=== PATIENT | female | born 1960 | race Caucasian/White ===

== ENCOUNTER 2018-06-30 19:11 | Inpatient (IN) | payer OTHER ==
[2018-06-30] MEDS: ONDANSETRON 4 MG INJ IV (22:25)
[2018-06-30] MEDS: ASPIRIN 81 MG TAB PO (22:25)
[2018-06-30] MEDS: morphine 4 MG/ML VIAL IV (22:26)
[2018-06-30] MEDS: FUROSEMIDE 40 MG INJ IV (22:26)
[2018-06-30 22:40] LABS: ADD MAN DIFF? NO
[2018-06-30 22:53] LABS: WHITE BLOOD COUNT 9.9 10^3/ul (4.8-10.8)
[2018-06-30 22:53] LABS: BASOPHIL # 0.1 10^3/ul (0.0-0.1); BASOPHILS % 0.5 % (0.0-2.0); EOSINOPHILS # 0.1 10^3/ul (0.0-0.5); EOSINOPHILS % 1.2 % (0.0-7.0); HEMATOCRIT 41.2 % (37.0-47.0); HEMOGLOBIN 13.8 g/dl (12.0-16.0); LYMPHOCYTES # 3.3 10^3/ul (0.8-2.9); LYMPHOCYTES % 33.8 % (15.0-51.0); MEAN CORPUSCULAR HEMOGLOBIN 27.1 pg (29.0-33.0); MEAN CORPUSCULAR HGB CONC 33.5 g/dl (32.0-37.0); MEAN CORPUSCULAR VOLUME 80.8 fl (82.0-101.0); MEAN PLATELET VOLUME 9.9 fl (7.4-10.4); MONOCYTE # 0.5 10^3/ul (0.3-0.9); MONOCYTES % 5.1 % (0.0-11.0); NEUTROPHIL # 5.8 10^3/ul (1.6-7.5); NEUTROPHILS % 59.1 % (39.0-77.0); PLATELET COUNT 271 10^3/UL (140-415); RED CELL DISTRIBUTION WIDTH 12.5 % (11.5-14.5)
[2018-06-30 23:11] LABS: ANION GAP 13 (5-13); BLOOD UREA NITROGEN 20 mg/dl (7-20); CALCIUM 9.8 mg/dl (8.4-10.2); CARBON DIOXIDE 28 mmol/L (21-31); CHLORIDE 95 mmol/L (97-110); Estimated GFR > 60 mL/min (>60); GLUCOSE 212 mg/dl (70-220); POTASSIUM 4.4 mmol/L (3.5-5.1); SODIUM 136 mmol/L (135-144)
[2018-06-30 23:23] LABS: B-TYPE NATRIURETIC PEPTIDE 45 PG/ML (0-125); TROPONIN-I < 0.012 ng/ml (0.000-0.120)
[2018-07-01] MEDS ORDERED: BISACODYL (EC) 5 MG TAB PO
[2018-07-01] MEDS ORDERED: ONDANSETRON 4 MG INJ IV
[2018-07-01] MEDS ORDERED: ACETAMINOPHEN 325 MG TAB PO ×2
[2018-07-01] MEDS ORDERED: NON-FORMULARY/PATIENT OWN MED (Insulin Lispro (Humalog Kwikpen U-100) 10 UNIT) SQ
[2018-07-01] MEDS ORDERED: NACL 0.9% 3 ML SYG IV
[2018-07-01] MEDS ORDERED: DOCUSATE SODIUM 100 MG CAP PO
[2018-07-01] MEDS ORDERED: CYCLOBENZAPRINE 10 MG TAB PO (02:30)
[2018-07-01] MEDS: KETOROLAC 30 MG INJ IV (03:17)
[2018-07-01 04:57] LABS: ADD MAN DIFF? NO
[2018-07-01 05:01] LABS: WHITE BLOOD COUNT 9.3 10^3/ul (4.8-10.8)
[2018-07-01 05:01] LABS: BASOPHIL # 0.1 10^3/ul (0.0-0.1); BASOPHILS % 0.6 % (0.0-2.0); EOSINOPHILS # 0.1 10^3/ul (0.0-0.5); EOSINOPHILS % 1.4 % (0.0-7.0); HEMATOCRIT 42.1 % (37.0-47.0); LYMPHOCYTES # 3.4 10^3/ul (0.8-2.9); LYMPHOCYTES % 36.2 % (15.0-51.0); MEAN CORPUSCULAR HEMOGLOBIN 27.2 pg (29.0-33.0); MEAN CORPUSCULAR HGB CONC 33.3 g/dl (32.0-37.0); MEAN CORPUSCULAR VOLUME 81.7 fl (82.0-101.0); MEAN PLATELET VOLUME 9.9 fl (7.4-10.4); MONOCYTE # 0.5 10^3/ul (0.3-0.9); MONOCYTES % 5.4 % (0.0-11.0); NEUTROPHIL # 5.2 10^3/ul (1.6-7.5); NEUTROPHILS % 56.2 % (39.0-77.0); PLATELET COUNT 252 10^3/UL (140-415); RED BLOOD COUNT 5.15 10^6/ul (4.20-5.40); RED CELL DISTRIBUTION WIDTH 12.4 % (11.5-14.5)
[2018-07-01 05:17] LABS: HEMOGLOBIN A1C 10.7 % (0-5.9)
[2018-07-01 05:29] LABS: ALANINE AMINOTRANSFERASE 30 IU/L (13-69); ALBUMIN 4.2 g/dl (3.3-4.9); ALBUMIN/GLOBULIN RATIO 1.31; ALKALINE PHOSPHATASE 111 IU/L (42-121); ANION GAP 11 (5-13); ASPARTATE AMINO TRANSFERASE 29 IU/L (15-46); BILIRUBIN,INDIRECT 0.4 mg/dl (0-1.1); BILIRUBIN,TOTAL 0.4 mg/dl (0.2-1.3); BLOOD UREA NITROGEN 21 mg/dl (7-20); CALCIUM 9.8 mg/dl (8.4-10.2); CARBON DIOXIDE 34 mmol/L (21-31); CHLORIDE 94 mmol/L (97-110); CREATININE 0.73 mg/dl (0.44-1.00); Estimated GFR > 60 mL/min (>60); GLUCOSE 157 mg/dl (70-220); HDL CHOLESTEROL 38 mg/dl (37-92); MAGNESIUM 1.8 mg/dl (1.7-2.5); POTASSIUM 4.6 mmol/L (3.5-5.1); SODIUM 139 mmol/L (135-144); TOTAL PROTEIN 7.4 g/dl (6.1-8.1)
[2018-07-01 05:31] LABS: CREATINE KINASE 23 IU/L (23-200)
[2018-07-01 05:40] LABS: CK-MB < 0.22 ng/ml (0.0-2.4); TROPONIN-I < 0.012 ng/ml (0.000-0.120)
[2018-07-01 05:41] LABS: CHOL/HDL RATIO 11.1 RATIO; CHOLESTEROL 424 mg/dl (100-200); LDL CHOLESTEROL,CALCULATED 257 mg/dl; TRIGLYCERIDES 646 mg/dl (0-149)
[2018-07-01] MEDS ORDERED: DEXTROSE 50% 50 ML SYRINGE IV ×2 (07:30)
[2018-07-01] MEDS ORDERED: GLUCOSE GEL 15 GRAM TUBE BUCCAL (07:30)
[2018-07-01] MEDS ORDERED: GLUCOSE GEL 15 GRAM TUBE PO ×2 (07:30)
[2018-07-01] MEDS ORDERED: GLUCAGON 1 MG INJ IM (07:30)
[2018-07-01] MEDS: PANTOPRAZOLE (EC) 40 MG TAB PO (08:07)
[2018-07-01] MEDS: LISINOPRIL 20 MG TAB PO ×2 (08:07→20:48)
[2018-07-01] MEDS: ASPIRIN 81 MG TAB PO (08:08)
[2018-07-01] MEDS: OLANZAPINE 5 MG TAB PO (08:08)
[2018-07-01] MEDS: FUROSEMIDE 40 MG TAB PO ×2 (08:08→17:22)
[2018-07-01] MEDS: SERTRALINE 50 MG TAB PO (08:09)
[2018-07-01] MEDS: THIAMINE 100 MG TAB PO (08:09)
[2018-07-01] MEDS ORDERED: NON-FORMULARY/PATIENT OWN MED (Omeprazole* 20 MG) PO (09:00)
[2018-07-01] MEDS ORDERED: ASPIRIN 81 MG TAB PO (09:00)
[2018-07-01 10:27] LABS: CREATINE KINASE 25 IU/L (23-200)
[2018-07-01 10:37] LABS: CK INDEX 0.9; CK-MB < 0.22 ng/ml (0.0-2.4); TROPONIN-I < 0.012 ng/ml (0.000-0.120)
[2018-07-01] MEDS: INSULIN ASPART [NOVOLOG] 3 ML PEN SC ×5 (12:11→21:13)
[2018-07-01] MEDS: DIGOXIN 0.125 MG TAB PO (12:19)
[2018-07-01] MEDS ORDERED: INSULIN GLARGINE [LANTus] (100 UNITS/ML) SYG SC (20:00)
[2018-07-01] MEDS: ATORVASTATIN 80 MG TAB PO (20:46)
[2018-07-01] MEDS ORDERED: ATORVASTATIN 40 MG TAB PO (21:00)
[2018-07-01] MEDS: INSULIN GLARGINE [LANTus] (100 UNITS/ML) SYG SC (21:13)
[2018-07-02] MEDS: PANTOPRAZOLE (EC) 40 MG TAB PO (05:29)
[2018-07-02] MEDS: FUROSEMIDE 40 MG TAB PO (05:29)
[2018-07-02 05:50] LABS: ADD MAN DIFF? NO
[2018-07-02 05:51] LABS: WHITE BLOOD COUNT 7.6 10^3/ul (4.8-10.8)
[2018-07-02 05:51] LABS: BASOPHIL # 0.1 10^3/ul (0.0-0.1); BASOPHILS % 0.7 % (0.0-2.0); EOSINOPHILS # 0.1 10^3/ul (0.0-0.5); EOSINOPHILS % 1.2 % (0.0-7.0); HEMATOCRIT 42.8 % (37.0-47.0); LYMPHOCYTES # 2.2 10^3/ul (0.8-2.9); LYMPHOCYTES % 29.1 % (15.0-51.0); MEAN CORPUSCULAR HGB CONC 32.7 g/dl (32.0-37.0); MEAN CORPUSCULAR VOLUME 82.5 fl (82.0-101.0); MONOCYTE # 0.4 10^3/ul (0.3-0.9); MONOCYTES % 5.3 % (0.0-11.0); NEUTROPHIL # 4.8 10^3/ul (1.6-7.5); NEUTROPHILS % 63.4 % (39.0-77.0); PLATELET COUNT 251 10^3/UL (140-415); RED BLOOD COUNT 5.19 10^6/ul (4.20-5.40); RED CELL DISTRIBUTION WIDTH 12.7 % (11.5-14.5)
[2018-07-02 06:30] LABS: PHOSPHORUS 4.6 mg/dl (2.5-4.9)
[2018-07-02 06:40] LABS: ANION GAP 10 (5-13); BLOOD UREA NITROGEN 26 mg/dl (7-20); CALCIUM 9.9 mg/dl (8.4-10.2); CARBON DIOXIDE 27 mmol/L (21-31); CHLORIDE 99 mmol/L (97-110); CREATININE 0.61 mg/dl (0.44-1.00); Estimated GFR > 60 mL/min (>60); GLUCOSE 220 mg/dl (70-220); SODIUM 136 mmol/L (135-144)
[2018-07-02 06:41] LABS: POTASSIUM 4.5 mmol/L (3.5-5.1); TROPONIN-I < 0.012 ng/ml (0.000-0.120)
[2018-07-02] MEDS ORDERED: SUCCINYLCHOLINE CHLORIDE 100 MG/5 ML SYG IV (07:00)
[2018-07-02] MEDS ORDERED: ETOMIDATE 20 MG INJ (07:00)
[2018-07-02] MEDS ORDERED: LIDOCAINE 1% (MDV) 20 ML INJ (07:39)
[2018-07-02] MEDS ORDERED: IODIXANOL LOCM 100 ML BTL ×5 (07:39→12:11)
[2018-07-02] MEDS ORDERED: NITROGLYCERIN (IC) 100 MCG/ML INJ ×2 (07:39→10:01)
[2018-07-02] MEDS ORDERED: HEPARIN 1000 UNITS/ML 10 ML INJ (07:39)
[2018-07-02] MEDS ORDERED: VERAPAMIL 5 MG INJ ×2 (07:39→10:01)
[2018-07-02] MEDS ORDERED: FENTAnyl 50 MCG/ML VIAL (07:47)
[2018-07-02] MEDS ORDERED: MIDAZOLAM 1 MG/ML 2 ML INJ (07:47)
[2018-07-02] MEDS ORDERED: BIVALIRUDIN 250MG /NS 50 ML 50 ML IVPB ×2 (08:27→09:58)
[2018-07-02] MEDS ORDERED: TICAGRELOR 90 MG TABLET (08:27)
[2018-07-02] MEDS ORDERED: IOHEXOL 350MG/ML 50 ML BTL ×2 (08:27→12:11)
[2018-07-02] MEDS ORDERED: ASPIRIN 325 MG TAB (08:54)
[2018-07-02] MEDS: ENOXAPARIN 40 MG/0.4 ML SYG SC (09:00)
[2018-07-02] MEDS: OLANZAPINE 5 MG TAB PO (09:00)
[2018-07-02] MEDS ORDERED: EPTIFIBATIDE 200 MG INJ IV (10:00)
[2018-07-02] MEDS ORDERED: EPTIFIBATIDE 20 MG INJ (10:00)
[2018-07-02] MEDS ORDERED: PROPOFOL 100 ML (12:49)
[2018-07-02] MEDS ORDERED: MAGNESIUM SULFATE 1 GM/D5W 100 ML ×2 (12:51→12:53)
[2018-07-02 13:18] LABS: ADD MAN DIFF? NO
[2018-07-02 13:24] LABS: BASOPHIL # 0.1 10^3/ul (0.0-0.1); BASOPHILS % 0.5 % (0.0-2.0); EOSINOPHILS % 0.3 % (0.0-7.0); HEMATOCRIT 42.8 % (37.0-47.0); HEMOGLOBIN 13.6 g/dl (12.0-16.0); LYMPHOCYTES % 15.4 % (15.0-51.0); MEAN CORPUSCULAR HEMOGLOBIN 26.9 pg (29.0-33.0); MEAN CORPUSCULAR HGB CONC 31.8 g/dl (32.0-37.0); MEAN CORPUSCULAR VOLUME 84.8 fl (82.0-101.0); MEAN PLATELET VOLUME 10.4 fl (7.4-10.4); MONOCYTE # 0.4 10^3/ul (0.3-0.9); MONOCYTES % 3.4 % (0.0-11.0); NEUTROPHIL # 10.3 10^3/ul (1.6-7.5); PLATELET COUNT 316 10^3/UL (140-415); RED BLOOD COUNT 5.05 10^6/ul (4.20-5.40); RED CELL DISTRIBUTION WIDTH 12.8 % (11.5-14.5)
[2018-07-02 13:24] LABS: WHITE BLOOD COUNT 12.8 10^3/ul (4.8-10.8)
[2018-07-02 13:39] LABS: ALANINE AMINOTRANSFERASE 110 IU/L (13-69); ALBUMIN 4.2 g/dl (3.3-4.9); ALBUMIN/GLOBULIN RATIO 1.23; ALKALINE PHOSPHATASE 135 IU/L (42-121); ANION GAP 19 (5-13); ASPARTATE AMINO TRANSFERASE 179 IU/L (15-46); BLOOD UREA NITROGEN 23 mg/dl (7-20); CALCIUM 9.1 mg/dl (8.4-10.2); CARBON DIOXIDE 25 mmol/L (21-31); CHLORIDE 94 mmol/L (97-110); CREATININE 0.68 mg/dl (0.44-1.00); Estimated GFR > 60 mL/min (>60); GLUCOSE 384 mg/dl (70-220); SODIUM 138 mmol/L (135-144); TOTAL PROTEIN 7.6 g/dl (6.1-8.1)
[2018-07-02] MEDS: PROPOFOL 100 ML IV ×3 (13:45→21:54)
[2018-07-02] MEDS: AMIODARONE 900 MG in DEXTROSE 5% 482 ML IV (13:47)
[2018-07-02] MEDS: EPTIFIBATIDE 100 ML IV ×2 (14:13→21:53)
[2018-07-02] MEDS: INSULIN ASPART [NOVOLOG] 3 ML PEN SC ×3 (14:14→22:03)
[2018-07-02 14:34] LABS: AADO2 Arterial 136.9 mmHg (7.0-24.0); Arterial Base Excess -0.9 mmol/L (-3.0-3); Arterial Blood Gas Oxygen Sat 99.7 mmHG (95.0-98.0); Arterial COHb 0.3 % (0.0-3.0); Arterial Fraction of Oxyhgb 99.1 % (93.0-99.0); Arterial MetHb 0.3 % (0.0-1.5); Arterial pCO2 41.1 mmhg (35-45); MODE VENT - AC; Site Right Brachial
[2018-07-02] MEDS: SOD CHLORIDE 0.9% 1,000 ML IV (14:48)
[2018-07-02] MEDS: MAGNESIUM SULFATE 1 GM/D5W 100 ML IVPB ×2 (14:48→15:00)
[2018-07-02] MEDS: THIAMINE 100 MG TAB PO (14:57)
[2018-07-02] MEDS: LISINOPRIL 20 MG TAB PO (14:57)
[2018-07-02] MEDS: SERTRALINE 50 MG TAB PO (14:57)
[2018-07-02] MEDS: ASPIRIN 81 MG TAB PO (14:58)
[2018-07-02] MEDS: INSULIN GLARGINE [LANTus] (100 UNITS/ML) SYG SC (20:21)
[2018-07-02] MEDS: ATORVASTATIN 80 MG TAB PO (20:27)
[2018-07-02] MEDS: TICAGRELOR 90 MG TABLET PO (20:29)
[2018-07-02 21:06] LABS: ADD MAN DIFF? NO
[2018-07-02 21:09] LABS: BASOPHIL # 0.1 10^3/ul (0.0-0.1); BASOPHILS % 0.3 % (0.0-2.0); EOSINOPHILS % 0.1 % (0.0-7.0); HEMATOCRIT 37.4 % (37.0-47.0); HEMOGLOBIN 12.7 g/dl (12.0-16.0); LYMPHOCYTES # 1.1 10^3/ul (0.8-2.9); LYMPHOCYTES % 7.7 % (15.0-51.0); MEAN CORPUSCULAR HEMOGLOBIN 27.5 pg (29.0-33.0); MONOCYTE # 0.9 10^3/ul (0.3-0.9); MONOCYTES % 6.4 % (0.0-11.0); NEUTROPHIL # 12.3 10^3/ul (1.6-7.5); NEUTROPHILS % 85.2 % (39.0-77.0); PLATELET COUNT 291 10^3/UL (140-415); RED BLOOD COUNT 4.62 10^6/ul (4.20-5.40); RED CELL DISTRIBUTION WIDTH 13.1 % (11.5-14.5)
[2018-07-02 21:09] LABS: WHITE BLOOD COUNT 14.4 10^3/ul (4.8-10.8)
[2018-07-03] MEDS: INSULIN ASPART [NOVOLOG] 3 ML PEN SC ×6 (01:44→21:38)
[2018-07-03 04:28] LABS: ADD MAN DIFF? NO
[2018-07-03 04:29] LABS: BASOPHILS % 0.4 % (0.0-2.0); EOSINOPHILS % 0.4 % (0.0-7.0); HEMATOCRIT 35.6 % (37.0-47.0); HEMOGLOBIN 11.8 g/dl (12.0-16.0); LYMPHOCYTES # 1.2 10^3/ul (0.8-2.9); LYMPHOCYTES % 10.6 % (15.0-51.0); MEAN CORPUSCULAR HEMOGLOBIN 27.2 pg (29.0-33.0); MEAN CORPUSCULAR HGB CONC 33.1 g/dl (32.0-37.0); MEAN PLATELET VOLUME 10.4 fl (7.4-10.4); MONOCYTE # 0.6 10^3/ul (0.3-0.9); MONOCYTES % 5.7 % (0.0-11.0); NEUTROPHILS % 82.5 % (39.0-77.0); PLATELET COUNT 273 10^3/UL (140-415); RED BLOOD COUNT 4.34 10^6/ul (4.20-5.40)
[2018-07-03 04:29] LABS: WHITE BLOOD COUNT 10.9 10^3/ul (4.8-10.8)
[2018-07-03] MEDS: PROPOFOL 100 ML IV (04:37)
[2018-07-03 04:47] LABS: ALANINE AMINOTRANSFERASE 81 IU/L (13-69); ALBUMIN 3.6 g/dl (3.3-4.9); ALBUMIN/GLOBULIN RATIO 1.12; ALKALINE PHOSPHATASE 104 IU/L (42-121); ANION GAP 10 (5-13); ASPARTATE AMINO TRANSFERASE 100 IU/L (15-46); BILIRUBIN,INDIRECT 0.9 mg/dl (0-1.1); BILIRUBIN,TOTAL 0.9 mg/dl (0.2-1.3); BLOOD UREA NITROGEN 19 mg/dl (7-20); CALCIUM 8.9 mg/dl (8.4-10.2); CARBON DIOXIDE 28 mmol/L (21-31); CHLORIDE 99 mmol/L (97-110); Estimated GFR > 60 mL/min (>60); GLUCOSE 206 mg/dl (70-220); POTASSIUM 3.7 mmol/L (3.5-5.1); SODIUM 137 mmol/L (135-144); TOTAL PROTEIN 6.8 g/dl (6.1-8.1)
[2018-07-03 04:48] LABS: PHOSPHORUS 3.2 mg/dl (2.5-4.9)
[2018-07-03] MEDS: PANTOPRAZOLE 40 MG INJ IV ×2 (05:36→18:12)
[2018-07-03] MEDS: FUROSEMIDE 40 MG TAB PO (05:37)
[2018-07-03 08:43] LABS: AADO2 Arterial 98.2 mmHg (7.0-24.0); Allen Test ACCEPTAB; Arterial Base Excess 4.4 mmol/L (-3.0-3); Arterial Blood Gas Oxygen Sat 98.8 mmHG (95.0-98.0); Arterial COHb 0.1 % (0.0-3.0); Arterial Fraction of Oxyhgb 98.4 % (93.0-99.0); Arterial HCO3 28.5 mmol/L (22.0-26.0); Arterial MetHb 0.3 % (0.0-1.5); Arterial pCO2 40.4 mmhg (35-45); MODE VENT - AC; Site Right Radial
[2018-07-03] MEDS: ASPIRIN 81 MG TAB PO (09:18)
[2018-07-03] MEDS: OLANZAPINE 5 MG TAB PO (09:18)
[2018-07-03] MEDS: THIAMINE 100 MG TAB PO (09:18)
[2018-07-03] MEDS: SERTRALINE 50 MG TAB PO (09:18)
[2018-07-03] MEDS: TICAGRELOR 90 MG TABLET PO ×2 (09:20→21:33)
[2018-07-03] MEDS: ENOXAPARIN 40 MG/0.4 ML SYG SC (09:21)
[2018-07-03] MEDS: ONDANSETRON 4 MG INJ IV (09:40)
[2018-07-03] MEDS: INSULIN GLARGINE [LANTus] (100 UNITS/ML) SYG SC (20:05)
[2018-07-03] MEDS: ATORVASTATIN 80 MG TAB PO (21:31)
[2018-07-04] MEDS: INSULIN ASPART [NOVOLOG] 3 ML PEN SC ×6 (02:21→17:30)
[2018-07-04 05:02] LABS: ADD MAN DIFF? NO
[2018-07-04 05:04] LABS: BASOPHILS % 0.3 % (0.0-2.0); EOSINOPHILS # 0.1 10^3/ul (0.0-0.5); EOSINOPHILS % 1.1 % (0.0-7.0); HEMATOCRIT 35.5 % (37.0-47.0); HEMOGLOBIN 11.6 g/dl (12.0-16.0); LYMPHOCYTES # 1.4 10^3/ul (0.8-2.9); LYMPHOCYTES % 12.8 % (15.0-51.0); MEAN CORPUSCULAR HEMOGLOBIN 27.2 pg (29.0-33.0); MEAN CORPUSCULAR HGB CONC 32.7 g/dl (32.0-37.0); MEAN CORPUSCULAR VOLUME 83.3 fl (82.0-101.0); MEAN PLATELET VOLUME 10.5 fl (7.4-10.4); MONOCYTE # 0.7 10^3/ul (0.3-0.9); MONOCYTES % 6.5 % (0.0-11.0); NEUTROPHIL # 8.3 10^3/ul (1.6-7.5); NEUTROPHILS % 78.8 % (39.0-77.0); PLATELET COUNT 230 10^3/UL (140-415); RED BLOOD COUNT 4.26 10^6/ul (4.20-5.40); RED CELL DISTRIBUTION WIDTH 12.8 % (11.5-14.5)
[2018-07-04 05:04] LABS: WHITE BLOOD COUNT 10.5 10^3/ul (4.8-10.8)
[2018-07-04 05:36] LABS: PHOSPHORUS 3.2 mg/dl (2.5-4.9)
[2018-07-04 05:36] LABS: MAGNESIUM 1.9 mg/dl (1.7-2.5)
[2018-07-04 05:39] LABS: ALANINE AMINOTRANSFERASE 58 IU/L (13-69); ALBUMIN 3.8 g/dl (3.3-4.9); ALBUMIN/GLOBULIN RATIO 1.22; ALKALINE PHOSPHATASE 110 IU/L (42-121); ANION GAP 8 (5-13); ASPARTATE AMINO TRANSFERASE 78 IU/L (15-46); BILIRUBIN,INDIRECT 1.4 mg/dl (0-1.1); BILIRUBIN,TOTAL 1.4 mg/dl (0.2-1.3); BLOOD UREA NITROGEN 21 mg/dl (7-20); CALCIUM 9.2 mg/dl (8.4-10.2); CARBON DIOXIDE 29 mmol/L (21-31); CHLORIDE 102 mmol/L (97-110); CREATININE 0.46 mg/dl (0.44-1.00); Estimated GFR > 60 mL/min (>60); GLUCOSE 187 mg/dl (70-220); POTASSIUM 3.7 mmol/L (3.5-5.1); SODIUM 139 mmol/L (135-144); TOTAL PROTEIN 6.9 g/dl (6.1-8.1)
[2018-07-04] MEDS: PANTOPRAZOLE 40 MG INJ IV ×2 (06:19→17:24)
[2018-07-04] MEDS: SOD CHLORIDE 0.9% 1,000 ML IV (08:09)
[2018-07-04] MEDS: ENOXAPARIN 40 MG/0.4 ML SYG SC (09:00)
[2018-07-04] MEDS: OLANZAPINE 5 MG TAB PO (09:16)
[2018-07-04] MEDS: THIAMINE 100 MG TAB PO (09:16)
[2018-07-04] MEDS: SERTRALINE 50 MG TAB PO (09:16)
[2018-07-04] MEDS: ASPIRIN 81 MG TAB PO (09:16)
[2018-07-04] MEDS: TICAGRELOR 90 MG TABLET PO ×2 (09:18→20:27)
[2018-07-04] MEDS: PROPOFOL 100 ML IV (11:42)
[2018-07-04] MEDS: ATORVASTATIN 80 MG TAB PO (20:25)
[2018-07-04] MEDS: INSULIN GLARGINE [LANTus] (100 UNITS/ML) SYG SC (20:26)
[2018-07-05 05:21] LABS: ADD MAN DIFF? NO
[2018-07-05 05:26] LABS: WHITE BLOOD COUNT 10.3 10^3/ul (4.8-10.8)
[2018-07-05 05:26] LABS: BASOPHILS % 0.2 % (0.0-2.0); EOSINOPHILS # 0.2 10^3/ul (0.0-0.5); EOSINOPHILS % 2.1 % (0.0-7.0); HEMATOCRIT 30.5 % (37.0-47.0); HEMOGLOBIN 10.1 g/dl (12.0-16.0); LYMPHOCYTES # 1.5 10^3/ul (0.8-2.9); LYMPHOCYTES % 14.7 % (15.0-51.0); MEAN CORPUSCULAR HEMOGLOBIN 27.2 pg (29.0-33.0); MEAN CORPUSCULAR HGB CONC 33.1 g/dl (32.0-37.0); MEAN CORPUSCULAR VOLUME 82.2 fl (82.0-101.0); MEAN PLATELET VOLUME 10.5 fl (7.4-10.4); MONOCYTE # 0.6 10^3/ul (0.3-0.9); MONOCYTES % 5.8 % (0.0-11.0); NEUTROPHIL # 7.9 10^3/ul (1.6-7.5); NEUTROPHILS % 76.7 % (39.0-77.0); PLATELET COUNT 219 10^3/UL (140-415); RED BLOOD COUNT 3.71 10^6/ul (4.20-5.40); RED CELL DISTRIBUTION WIDTH 13.1 % (11.5-14.5)
[2018-07-05 05:47] LABS: ANION GAP 9 (5-13); BLOOD UREA NITROGEN 19 mg/dl (7-20); CALCIUM 8.9 mg/dl (8.4-10.2); CARBON DIOXIDE 27 mmol/L (21-31); CHLORIDE 102 mmol/L (97-110); CREATININE 0.49 mg/dl (0.44-1.00); Estimated GFR > 60 mL/min (>60); GLUCOSE 215 mg/dl (70-220); POTASSIUM 3.6 mmol/L (3.5-5.1); SODIUM 138 mmol/L (135-144)
[2018-07-05 05:56] LABS: PHOSPHORUS 2.7 mg/dl (2.5-4.9)
[2018-07-05 05:56] LABS: MAGNESIUM 1.6 mg/dl (1.7-2.5)
[2018-07-05] MEDS: PANTOPRAZOLE 40 MG INJ IV (06:08)
[2018-07-05] MEDS: SERTRALINE 50 MG TAB PO (08:29)
[2018-07-05] MEDS: OLANZAPINE 5 MG TAB PO (08:29)
[2018-07-05] MEDS: ASPIRIN 81 MG TAB PO (08:29)
[2018-07-05] MEDS: THIAMINE 100 MG TAB PO (08:29)
[2018-07-05] MEDS: INSULIN ASPART [NOVOLOG] 3 ML PEN SC ×6 (08:30→17:47)
[2018-07-05] MEDS: TICAGRELOR 90 MG TABLET PO ×2 (08:30→20:08)
[2018-07-05] MEDS: POTASSIUM CHLORIDE 20 MEQ POWDER FOR ORAL SOLN PO ×2 (10:09→17:47)
[2018-07-05] MEDS: MAGNESIUM SULFATE 2 GM/50 ML 50 ML IVPB (10:14)
[2018-07-05] MEDS: INSULIN GLARGINE [LANTus] (100 UNITS/ML) SYG SC (19:46)
[2018-07-05] MEDS: ATORVASTATIN 80 MG TAB PO (20:06)
[2018-07-05] MEDS: LACTOBACILLUS RHAMNOSUS CAP PO (20:06)
[2018-07-06] MEDS: ZOLPIDEM 5 MG TAB PO (01:10)
[2018-07-06 05:15] LABS: ADD MAN DIFF? NO
[2018-07-06 05:18] LABS: BASOPHILS % 0.2 % (0.0-2.0); EOSINOPHILS # 0.3 10^3/ul (0.0-0.5); EOSINOPHILS % 3.1 % (0.0-7.0); HEMATOCRIT 27.7 % (37.0-47.0); HEMOGLOBIN 9.2 g/dl (12.0-16.0); LYMPHOCYTES # 1.5 10^3/ul (0.8-2.9); LYMPHOCYTES % 18.2 % (15.0-51.0); MEAN CORPUSCULAR HEMOGLOBIN 27.6 pg (29.0-33.0); MEAN CORPUSCULAR HGB CONC 33.2 g/dl (32.0-37.0); MEAN CORPUSCULAR VOLUME 83.2 fl (82.0-101.0); MEAN PLATELET VOLUME 10.4 fl (7.4-10.4); MONOCYTE # 0.5 10^3/ul (0.3-0.9); MONOCYTES % 5.7 % (0.0-11.0); NEUTROPHILS % 72.1 % (39.0-77.0); PLATELET COUNT 231 10^3/UL (140-415); RED BLOOD COUNT 3.33 10^6/ul (4.20-5.40); RED CELL DISTRIBUTION WIDTH 12.7 % (11.5-14.5)
[2018-07-06 05:18] LABS: WHITE BLOOD COUNT 8.3 10^3/ul (4.8-10.8)
[2018-07-06 05:36] LABS: INR 0.97
[2018-07-06] MEDS: PANTOPRAZOLE (EC) 40 MG TAB PO (05:39)
[2018-07-06 05:43] LABS: ALANINE AMINOTRANSFERASE 34 IU/L (13-69); ALBUMIN 3.3 g/dl (3.3-4.9); ALBUMIN/GLOBULIN RATIO 1.17; ALKALINE PHOSPHATASE 102 IU/L (42-121); ANION GAP 6 (5-13); ASPARTATE AMINO TRANSFERASE 31 IU/L (15-46); BILIRUBIN,INDIRECT 0.8 mg/dl (0-1.1); BILIRUBIN,TOTAL 0.8 mg/dl (0.2-1.3); BLOOD UREA NITROGEN 15 mg/dl (7-20); CALCIUM 9.1 mg/dl (8.4-10.2); CARBON DIOXIDE 28 mmol/L (21-31); CHLORIDE 103 mmol/L (97-110); CREATININE 0.44 mg/dl (0.44-1.00); Estimated GFR > 60 mL/min (>60); GLUCOSE 185 mg/dl (70-220); MAGNESIUM 1.8 mg/dl (1.7-2.5); POTASSIUM 3.9 mmol/L (3.5-5.1); SODIUM 137 mmol/L (135-144); TOTAL PROTEIN 6.1 g/dl (6.1-8.1)
[2018-07-06] MEDS ORDERED: EPINEPHrine 0.1 MG/ML SYG (07:00)
[2018-07-06] MEDS ORDERED: AMIODARONE 150 MG INJ (07:00)
[2018-07-06] MEDS ORDERED: LIDOCAINE 100 MG SYRINGE (07:00)
[2018-07-06] MEDS: INSULIN ASPART [NOVOLOG] 3 ML PEN SC ×7 (09:24→22:45)
[2018-07-06] MEDS: POTASSIUM CHLORIDE 20 MEQ POWDER FOR ORAL SOLN PO (09:27)
[2018-07-06] MEDS: OLANZAPINE 5 MG TAB PO (09:27)
[2018-07-06] MEDS: LACTOBACILLUS RHAMNOSUS CAP PO ×2 (09:27→22:38)
[2018-07-06] MEDS: THIAMINE 100 MG TAB PO (09:27)
[2018-07-06] MEDS: SERTRALINE 50 MG TAB PO (09:28)
[2018-07-06] MEDS: TICAGRELOR 90 MG TABLET PO ×2 (09:28→22:09)
[2018-07-06] MEDS: ASPIRIN 81 MG TAB PO (09:28)
[2018-07-06] MEDS: LISINOPRIL 5 MG TAB PO (16:34)
[2018-07-06] MEDS: ATORVASTATIN 80 MG TAB PO (22:38)
[2018-07-06] MEDS: INSULIN GLARGINE [LANTus] (100 UNITS/ML) SYG SC (22:45)
[2018-07-07] MEDS: ZOLPIDEM 5 MG TAB PO (00:07)
[2018-07-07] MEDS: PANTOPRAZOLE (EC) 40 MG TAB PO (06:14)
[2018-07-07] MEDS: INSULIN ASPART [NOVOLOG] 3 ML PEN SC ×3 (08:11→11:18)
[2018-07-07] MEDS: THIAMINE 100 MG TAB PO (08:58)
[2018-07-07] MEDS: POTASSIUM CHLORIDE 20 MEQ POWDER FOR ORAL SOLN PO (08:58)
[2018-07-07] MEDS: LACTOBACILLUS RHAMNOSUS CAP PO (08:58)
[2018-07-07] MEDS: ASPIRIN 81 MG TAB PO (08:58)
[2018-07-07] MEDS: SERTRALINE 50 MG TAB PO (08:58)
[2018-07-07] MEDS: OLANZAPINE 5 MG TAB PO (08:59)
[2018-07-07] MEDS: LISINOPRIL 5 MG TAB PO (08:59)
[2018-07-07] MEDS: TICAGRELOR 90 MG TABLET PO (09:07)
== END 2018-07-07 15:08 | disposition home or self-care (01) | DRG 246 ==
LOC: 6WM 23:39 → TEL 07-06 18:14 → ICU 07-02 11:15 → E/R 19:11
PROC: 027037Z Dilation of Coronary Artery, One Artery with Four or More Drug-eluting Intraluminal Devices, Percutaneous Approach (ICD-10-PCS; principal; 2018-07-02 07:18)
PROC: 4A023N7 Measurement of Cardiac Sampling and Pressure, Left Heart, Percutaneous Approach (ICD-10-PCS; 2018-07-02 07:18)
PROC: B211YZZ Fluoroscopy of Multiple Coronary Arteries using Other Contrast (ICD-10-PCS; 2018-07-02 07:18)
PROC: 5A1223Z Performance of Cardiac Pacing, Continuous (ICD-10-PCS; 2018-07-02 07:18)
PROC: 4A023N7 Measurement of Cardiac Sampling and Pressure, Left Heart, Percutaneous Approach (ICD-10-PCS; 2018-07-02 07:18)
PROC: B211YZZ Fluoroscopy of Multiple Coronary Arteries using Other Contrast (ICD-10-PCS; 2018-07-02 07:18)
PROC: 5A2204Z Restoration of Cardiac Rhythm, Single (ICD-10-PCS; 2018-07-02 07:18)
PROC: 0BH17EZ Insertion of Endotracheal Airway into Trachea, Via Natural or Artificial Opening (ICD-10-PCS; 2018-07-02 07:18)
PROC: 5A1935Z Respiratory Ventilation, Less than 24 Consecutive Hours (ICD-10-PCS; 2018-07-02 07:18)
DX: I25.110 Atherosclerotic heart disease of native coronary artery with unstable angina pectoris (principal); J96.00 Acute respiratory failure, unspecified whether with hypoxia or hypercapnia; I49.01 Ventricular fibrillation; I25.42 Coronary artery dissection; I46.2 Cardiac arrest due to underlying cardiac condition; I21.4 Non-ST elevation (NSTEMI) myocardial infarction; I50.22 Chronic systolic (congestive) heart failure; T82.867A Thrombosis due to cardiac prosthetic devices, implants and grafts, initial encounter; I97.88 Other intraoperative complications of the circulatory system, not elsewhere classified; I97.190 Other postprocedural cardiac functional disturbances following cardiac surgery; E78.5 Hyperlipidemia, unspecified; F32.9 Major depressive disorder, single episode, unspecified; I11.0 Hypertensive heart disease with heart failure; E11.65 Type 2 diabetes mellitus with hyperglycemia; E66.9 Obesity, unspecified; I25.5 Ischemic cardiomyopathy; Y83.8 Other surgical procedures as the cause of abnormal reaction of the patient, or of later complication, without mention of misadventure at the time of the procedure; Y92.238 Other place in hospital as the place of occurrence of the external cause; Z68.34 Body mass index [BMI] 34.0-34.9, adult; F39 Unspecified mood [affective] disorder; R00.1 Bradycardia, unspecified
CPT/HCPCS: 31500; 36415; 36600; 71045; 80048; 80053; 80061; 82550; 82553; 82803; 82962; 83036; 83735; 83880; 84100; 84443; 84484; 85025; 85610; 87081; 92928; 93005; 93306; 93454; 93458; 94002; 94003; 94770; 96374; 96375; 97161; 97166; 99285-25; G0378

== ENCOUNTER 2018-08-19 23:41 | Emergency (ER) | payer OTHER ==
[2018-08-20] MEDS: SOD CHLORIDE 0.9% 1,000 ML IV (02:53)
[2018-08-20] MEDS: ACETAMINOPHEN 500 MG TAB PO (02:54)
[2018-08-20] MEDS: METOCLOPRAMIDE 10 MG INJ IV (02:54)
[2018-08-20] MEDS: DIPHENHYDRAMINE 50 MG INJ IV (02:54)
[2018-08-20 03:15] LABS: ADD MAN DIFF? NO; BASOPHIL # 0.1 10^3/ul (0.0-0.1); BASOPHILS % 0.9 % (0.0-2.0); HEMOGLOBIN 13.5 g/dl (12.0-16.0); LYMPHOCYTES # 2.9 10^3/ul (0.8-2.9); LYMPHOCYTES % 27.8 % (15.0-51.0); MEAN CORPUSCULAR HEMOGLOBIN 27.2 pg (29.0-33.0); MEAN CORPUSCULAR HGB CONC 32.9 g/dl (32.0-37.0); MEAN CORPUSCULAR VOLUME 82.5 fl (82.0-101.0); MEAN PLATELET VOLUME 9.9 fl (7.4-10.4); MONOCYTE # 0.5 10^3/ul (0.3-0.9); MONOCYTES % 4.9 % (0.0-11.0); NEUTROPHIL # 6.9 10^3/ul (1.6-7.5); NEUTROPHILS % 65.9 % (39.0-77.0); PLATELET COUNT 316 10^3/UL (140-415); RED BLOOD COUNT 4.97 10^6/ul (4.20-5.40); RED CELL DISTRIBUTION WIDTH 12.6 % (11.5-14.5)
[2018-08-20 03:15] LABS: WHITE BLOOD COUNT 10.5 10^3/ul (4.8-10.8)
[2018-08-20 03:35] LABS: INR 0.86; PROTIME 11.8 Sec (11.9-14.9); PT RATIO 0.9
[2018-08-20 03:36] LABS: PARTIAL THROMBOPLASTIN TIME 33.7 Sec (23.0-35.0)
[2018-08-20 03:38] LABS: ANION GAP 11 (5-13); BLOOD UREA NITROGEN 17 mg/dl (7-20); CALCIUM 10.1 mg/dl (8.4-10.2); CARBON DIOXIDE 28 mmol/L (21-31); CHLORIDE 102 mmol/L (97-110); CREATININE 0.54 mg/dl (0.44-1.00); Estimated GFR > 60 mL/min (>60); GLUCOSE 224 mg/dl (70-220); POTASSIUM 4.5 mmol/L (3.5-5.1); SODIUM 141 mmol/L (135-144)
[2018-08-20] MEDS: HYDROCODONE/APAP (5/325) TAB PO (04:45)
[2018-08-20] MEDS: ONDANSETRON 4 MG INJ IV (05:55)
[2018-08-20] MEDS: morphine 2 MG INJ IV (05:55)
[2018-08-20] MEDS: SOD CHLORIDE 0.9% 100 ML (06:12)
[2018-08-20] MEDS: IOHEXOL 300MG/ML 150 ML BTL (06:12)
[2018-08-20] MEDS: HYDROmorphONE 0.5 MG/0.5 ML SYG IV (06:37)
== END 2018-08-20 08:10 | disposition short-term general hospital (02) ==
LOC: FTE 23:41 → E/R 08-20 08:10
DX: I60.9 Nontraumatic subarachnoid hemorrhage, unspecified (principal); I10 Essential (primary) hypertension; E11.9 Type 2 diabetes mellitus without complications; I25.10 Atherosclerotic heart disease of native coronary artery without angina pectoris; Z98.61 Coronary angioplasty status; Z87.891 Personal history of nicotine dependence; Z79.82 Long term (current) use of aspirin; Z79.4 Long term (current) use of insulin
CPT/HCPCS: 36415; 70450; 80048; 82962; 85025; 85610; 85730; 96374; 96375; 99291-25